=== PATIENT | female | born 1985 | race Caucasian/White ===

== ENCOUNTER 2020-09-12 17:25 | Emergency (ER) | payer OTHER ==
[~2020-09-12] VITALS: Ht 165.1 cm; Wt 81.7 kg
[2020-09-12 17:57] LABS: ABSOLUTE BASOPHILS 0.1 thou/uL (0.0-0.2); ABSOLUTE EOSINOPHILS 0.2 thou/uL (0.0-0.7); ABSOLUTE LYMPHOCYTES 3.2 thou/uL (0.8-5.3); ABSOLUTE MONOCYTES 0.4 thou/uL (0.0-1.2); ABSOLUTE NEUTROPHILS 5.6 thou/uL (1.6-8.1); BASOPHILS 0.9 %; EOSINOPHILS 1.7 %; HEMATOCRIT 34.3 % (37.0-47.0); HEMOGLOBIN 11.4 gm/dL (12.0-15.0); LYMPHOCYTES 34.3 %; MCHC 33.3 g/dL (28.0-37.0); MCV 84.1 fL (80.0-100.0); MONOCYTES 4.1 %; MPV 8.2 fl. (7.2-11.1); NUCLEATED RBCS 0 /100WBC; PLATELET COUNT* 311 thou/uL (150-400); RBC 4.08 mil/uL (4.20-5.00); RDW-CV 14.8 % (10.5-14.5); WBC 9.5 thou/uL (4.0-11.0)
[2020-09-12 18:07] LABS: CALCIUM 8.1 mg/dL (8.5-10.1); CREATININE 0.6 mg/dL (0.6-1.3); POTASSIUM 3.2 mmol/L (3.5-5.1)
[2020-09-12 18:12] LABS: ALBUMIN 3.5 g/dL (3.4-5.0); TOTAL BILIRUBIN 0.2 mg/dL (<0.1-1.0); TOTAL PROTEIN 7.1 g/dL (6.4-8.2)
[2020-09-12 19:32] VITALS: BP 118/79
--- NOTE | 2020-09-15 11:30 | EKG ---
[place] [address] ELECTROCARDIOGRAM REPORT Name: AMPARO VERONICA Room[facility]#: [id number] Admission: 09/12/20 Attend Phys: Discharge: 09/12/20 Date of : 89 Date of Service: 09/12/201807 Report #: [id number] THIS REPORT FOR: //name// 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
== END 2020-09-12 19:32 | disposition home or self-care (01) ==
LOC: M.ERS 17:25
PROVIDERS: Emergency Medicine Emergency Medical Services
DX: R42 Dizziness and giddiness (principal); R55 Syncope and collapse; R20.2 Paresthesia of skin

== ENCOUNTER 2021-05-07 05:24 | Inpatient (IN) | payer OTHER ==
[~2021-05-07] VITALS: Ht 165.1 cm; Wt 91.6 kg
[2021-05-07 05:32] VITALS: BP 127/67
[2021-05-07] MEDS ORDERED: BIRTH CONTROL (05:35)
[2021-05-07 06:08] LABS: ABSOLUTE BASOPHILS 0.1 thou/uL (0.0-0.2); ABSOLUTE EOSINOPHILS 0.7 thou/uL (0.0-0.7); ABSOLUTE LYMPHOCYTES 3.9 thou/uL (0.8-5.3); ABSOLUTE MONOCYTES 0.7 thou/uL (0.0-1.2); ABSOLUTE NEUTROPHILS 8.3 thou/uL (1.6-8.1); BASOPHILS 0.5 %; EOSINOPHILS 5.2 %; HEMATOCRIT 32.1 % (37.0-47.0); HEMOGLOBIN 10.7 gm/dL (12.0-15.0); LYMPHOCYTES 28.3 %; MCH 27.4 pg (26.0-34.0); MCHC 33.3 g/dL (28.0-37.0); MCV 82.4 fL (80.0-100.0); MPV 7.8 fl. (7.2-11.1); NUCLEATED RBCS 0 /100WBC; PLATELET COUNT* 299 thou/uL (150-400); RDW-CV 15.4 % (10.5-14.5); WBC 13.6 thou/uL (4.0-11.0)
[2021-05-07 06:56] LABS: CALCIUM 8.1 mg/dL (8.5-10.1); CREATININE 0.6 mg/dL (0.6-1.3); POTASSIUM 3.1 mmol/L (3.5-5.1)
[2021-05-07 07:01] LABS: ALBUMIN 3.4 g/dL (3.4-5.0); TOTAL BILIRUBIN 0.2 mg/dL (<0.1-1.0); TOTAL PROTEIN 7.1 g/dL (6.4-8.2)
[2021-05-07 07:11] LABS: URINE BILIRUBIN NEGATIVE (Negative); URINE BLOOD 3+ (Negative); URINE CLARITY CLEAR; URINE COLOR YELLOW; URINE GLUCOSE-RANDOM NEGATIVE (Negative); URINE KETONES NEGATIVE (Negative); URINE LEUKOCYTES-REFLEX NEGATIVE (Negative); URINE NITRITE-REFLEX NEGATIVE (Negative); URINE PROTEIN NEGATIVE (Negative); URINE SPECIFIC GRAVITY 1.015 (1.005-1.030); URINE UROBILINOGEN 0.2 E.U./dl (0.2-1.0)
[2021-05-07 07:26] LABS: BACTERIA-REFLEX 1-9 Few /HPF (None Seen); CASTS None Seen /LPF (None Seen); CRYSTALS None Seen /LPF (None Seen); MUCUS None Seen strn/LPF (None Seen); SQUAMOUS 4-10 Moderate /LPF (0-3); URINE WBC-REFLEX 0-5 Rare /HPF (0-5)
[2021-05-07 08:06] LABS: MAGNESIUM 1.8 mg/dL (1.8-2.4)
--- NOTE | 2021-05-07 12:03 | EKG ---
[place] [address] ELECTROCARDIOGRAM REPORT Name: AMPARO VERONICA Room: [place] [address] ADM [place] [facility]#: [id number] Admission: 05/07/21 Attend Phys: Abner Hilario Discharge: Date of : 89 Date of Service: 05/07/21 0531 Report #: [id number] THIS REPORT FOR: //name// [facility] ED Test Date: 2021-05-07 Test Time: 05:31:34 Pat Name: AMPARO VERONICA Department: Room: [facility] Gender: [facility] Consultant: SHY : 1985 Requested By: Mirela Bruner Order Number: [id number] MD: Juliano Adkins Measurements Intervals [place] Rate: 78 P: 38 OK: 154 QRS: 41 QRSD: 100 T: 17 QT: 400 QTc: 456 Interpretive Statements Sinus rhythm Compared to ECG 09/12/2020 18:08:21 No significant changes Electronically Signed On 05-07-2021 12:03:42 CDT by Juliano Adkins [email or web address] <ELECTRONICALLY SIGNED> By: Juliano Adkins MD, FACC 05/07/21 1203 0531 0531 Juliano Adkins MD, [facility] /EPI
[2021-05-07 13:13] VITALS: BP 116/73
[2021-05-07 17:00] VITALS: BP 107/52
[2021-05-07 21:01] VITALS: BP 131/54
[2021-05-07 22:45] LABS: MAGNESIUM 1.8 mg/dL (1.8-2.4); PHOSPHORUS* 2.7 mg/dL (2.5-4.9)
[2021-05-08] VITALS (7 sets, daily range): BP systolic 107–139; BP diastolic 65–78
[2021-05-08 01:14] LABS: ABSOLUTE BASOPHILS 0.1 thou/uL (0.0-0.2); ABSOLUTE EOSINOPHILS 0.9 thou/uL (0.0-0.7); ABSOLUTE LYMPHOCYTES 3.2 thou/uL (0.8-5.3); ABSOLUTE MONOCYTES 0.7 thou/uL (0.0-1.2); ABSOLUTE NEUTROPHILS 6.4 thou/uL (1.6-8.1); BASOPHILS 0.7 %; HEMATOCRIT 34.9 % (37.0-47.0); HEMOGLOBIN 11.5 gm/dL (12.0-15.0); LYMPHOCYTES 28.1 %; MCH 27.3 pg (26.0-34.0); MCV 82.8 fL (80.0-100.0); MONOCYTES 6.3 %; MPV 7.7 fl. (7.2-11.1); NUCLEATED RBCS 0 /100WBC; PLATELET COUNT* 325 thou/uL (150-400); POLYS 56.9 %; RBC 4.21 mil/uL (4.20-5.00); RDW-CV 15.6 % (10.5-14.5); WBC 11.2 thou/uL (4.0-11.0)
[2021-05-08 01:22] LABS: POTASSIUM 3.9 mmol/L (3.5-5.1)
[2021-05-08 01:56] LABS: CALCIUM 8.7 mg/dL (8.5-10.1); CREATININE 0.5 mg/dL (0.6-1.3)
[2021-05-08] MEDS ORDERED: ELIQUIS5 MG PO (14:04)
[2021-05-09] VITALS: BP 125/80
[2021-05-09 04:00] VITALS: BP 110/65
[2021-05-09 11:01] VITALS: BP 110/65
== END 2021-05-09 14:00 | disposition home or self-care (01) | DRG 176 ==
LOC: M.ERS 05:24 → M.TBA-ER 09:04 → M.2W 05-08 08:11 → M.ORTHSURG 05-09 07:10
PROVIDERS: Emergency Medicine; ADMIT Internal Medicine; ATTEND Internal Medicine
DX: I26.99 Other pulmonary embolism without acute cor pulmonale (principal); I95.9 Hypotension, unspecified; D72.829 Elevated white blood cell count, unspecified; D64.9 Anemia, unspecified; E87.6 Hypokalemia; Z20.822 Contact with and (suspected) exposure to COVID-19; Z82.49 Family history of ischemic heart disease and other diseases of the circulatory system; Z79.3 Long term (current) use of hormonal contraceptives